=== PATIENT | male | born 1945 | race Two or more races ===

== ENCOUNTER 2017-06-23 23:09 | Inpatient (IN) | payer MEDICAID, OTHER ==
[~2017-06-23] VITALS: Ht 167.6 cm; Wt 51.3 kg
[2017-06-23] MEDS ORDERED: IV NS 0.9% 500 ML BAG IV ONE (23:30)
--- NOTE | 2017-06-24 00:09 | NUR ---
PT PRESENTS WITH HEMATEMESIS TODAY PER STATED FROM FAMILY. PT HAS HX OF DEMENTIA AND SPEAKS NO [place]. FAMILY MEMBERS AT BEDSIDE SPEAK NO [place]. PT IS UNCOOPERATIVE WITH PROCEDURE BUT WILL TOLERATE WITH FAMILIES ASSISTANCE. BLOOD DRAWN, IV PLACED LT AC 18 GUAGE.
[2017-06-24 00:18] LABS: BASOPHILS % (AUTO) 0.1 % (0.0-2.0); EOSINOPHILS # (AUTO) 0.3 /CMM (0.0-0.7); EOSINOPHILS % (AUTO) 5.4 % (0.0-6.0); HEMATOCRIT 33 % (39-51); LYMPHOCYTES # (AUTO) 0.7 /CMM (0.8-4.8); LYMPHOCYTES % (AUTO) 13.3 % (20.0-44.0); MEAN CORPUSCULAR HEMOGLOBIN 30 PG (26.0-33.0); MEAN CORPUSCULAR HGB CONC 33 g/dl (31.0-36.0); MEAN CORPUSCULAR VOLUME 92 fL (80-96); MONOCYTES # (AUTO) 0.3 /CMM (0.1-1.30); MONOCYTES % (AUTO) 5.5 % (2.0-12.0); NEUTROPHILS # (AUTO) 4.1 /CMM (1.8-8.9); NEUTROPHILS % (AUTO) 75.7 % (43.0-81.0); PLATELET COUNT (AUTO) 103 /CMM (150-450); RDW COEFFICIENT OF VARIATION 18.4 (11.5-15.0); RED BLOOD CELL COUNT(AUTO) 3.64 MIL/uL (4.5-6.0); WHITE BLOOD COUNT (AUTO) 5.5 K/uL (4.3-11.0)
--- NOTE | 2017-06-24 00:24 | NUR ---
18 G IV PLACED RT AC, PT NOW RECEIVING FLUIDS 500 ML NS
[2017-06-24 00:31] LABS: INR 1.26 (0.87-1.13); PROTHROMBIN TIME 13.1 SECS (9.5-12.7)
[2017-06-24 00:33] LABS: CALCIUM, SERUM 8.7 mg/dL (8.5-10.1); CARBON DIOXIDE 27 mmol/L (21-32); CHLORIDE 102 mmol/L (98-107); GLUCOSE 118 mg/dL (74-106); POTASSIUM 3.8 mmol/L (3.5-5.1); SODIUM SERUM 135 mmol/L (136-145); UREA NITROGEN, BLOOD 32 mg/dL (7-18)
[2017-06-24 00:42] LABS: ALANINE AMINOTRANSFERASE 40 U/L (12-78); ALBUMIN 3.3 g/dL (3.4-5.0); ALKALINE PHOSPHATASE 279 U/L (46-116); ASPARTATE AMINOTRANSFERASE 46 U/L (15-37); BILIRUBIN,DIRECT 0.8 mg/dL (0.0-0.2); BILIRUBIN,TOTAL 1.8 mg/dL (0.2-1.0); LIPASE 320 U/L (73-393); TOTAL PROTEIN, SERUM 7.3 g/dL (6.4-8.2)
[2017-06-24 00:44] LABS: TROPONIN I 0.058 ng/mL (0.00-0.056)
--- NOTE | 2017-06-24 02:14 | NUR ---
PATIENT GOES TO 314-2.
[2017-06-24] MEDS ORDERED: PANTOPRAZOLE 40 MG VIAL ONE (02:50)
--- NOTE | 2017-06-24 02:51 | NUR ---
CALLED REPORT TO RUTHIE RN TO TELE FLOOR, PT WITH FAMILY AND IS [place] SPEAKING ONLY. PT GIVEN PROTONIX BEFORE TRANSFER TO FLOOR BY RN AND EMT TECH. ADMIT TO FLOOR 314-2
[2017-06-24] MEDS ORDERED: PANTOPRAZOLE 80 MG in IV NS 0.9% 100 ML IV ONE (03:00)
--- NOTE | 2017-06-24 03:08 | NUR ---
TELE/RN RECEIVE PATIENT FROM E.[facility]. [facility]IA [facility]. PATIENT BEING ADMITTED FOR GI BLEED.PATIENT IS AWAKE, ALERT, ORIENTED, PROTONIX IV BOLUS IS INFUSING. PATIENT HAS NO C/O PAIN, NO DISTRESS NOTED. PATIENT IS NOT A GOOD HISTORIAN HENCE UNABLE TO OBTAIN ADMISSION INFORMATIONS FROM HIM. ADMISSION INFORMATIONS WERE OBTAINED FROM E.R. NOTES. MADE PATIENT COMFORTABLE. PATIENT REFUSED TO WEAR HOSPITAL GOWN. TAUGHT THE USE OF CALL LIGHT AND PLACED AT BEDSIDE WITHIN REACH. FALL PRECATION PER PROTOCOL INSTITUTED. PATIIENT IS CITIZEN OF [place] SPEAKING ONLY, MOISES, RN, TRANSLATING. WILL MONITOR.
[2017-06-24 03:15] VITALS: BP 100/58
[2017-06-24 04:00] VITALS: BP 100/58
[2017-06-24] MEDS ORDERED: FERR-58 PO (04:19)
[2017-06-24] MEDS ORDERED: BISA10SU8 RC (04:19)
[2017-06-24] MEDS ORDERED: ACET-868 PO (04:19)
[2017-06-24] MEDS ORDERED: CRAN425C PO (04:19)
[2017-06-24] MEDS ORDERED: CRAN3875 PO (04:19)
[2017-06-24] MEDS ORDERED: ATOR40TA PO (04:19)
[2017-06-24] MEDS ORDERED: DEXT38GE12 PO (04:19)
[2017-06-24] MEDS ORDERED: NA P133E RC (04:19)
[2017-06-24] MEDS ORDERED: ASPI-605 PO (04:19)
[2017-06-24] MEDS ORDERED: MAGN2400 PO (04:19)
[2017-06-24] MEDS ORDERED: MIDO2.5T PO (04:19)
[2017-06-24] MEDS ORDERED: DOCU-25 PO (04:19)
[2017-06-24] MEDS ORDERED: GLUC1KIT IM ×2 (04:19)
[2017-06-24] MEDS ORDERED: ACET-2605 PO (04:19)
[2017-06-24] MEDS ORDERED: CALC-883 PO (04:19)
--- NOTE | 2017-06-24 04:30 | NUR ---
TELE/RN PATIENT IS SLEEPING AT THIS TIME, NO DISTRESS NOTED, BREATHING EVEN AND UNLABORED. WILL CONTINUE TO MONITOR.
[2017-06-24] MEDS ORDERED: IV NS 0.9% 1,000 ML IV PRN (04:58)
[2017-06-24] MEDS ORDERED: ACETAMINOPHEN 325 MG TABLET PO PRN ×2 (05:00)
[2017-06-24] MEDS ORDERED: NA PHOS,M-B/NA PHOS,DI-BA 1 EA ENEMA RC PRN (05:00)
[2017-06-24] MEDS ORDERED: ONDANSETRON HCL/PF 4 MG/2 ML VIAL IVP PRN (05:00)
[2017-06-24] MEDS ORDERED: GLUTOSE 15 G GEL..GM. PO SCH (05:00)
[2017-06-24] MEDS ORDERED: BISACODYL SUPP (10 MG) 10 MG/SUPP.RECT SUPP.RECT RC PRN (05:00)
[2017-06-24] MEDS ORDERED: Z GUARD REMEDY 2 OZ OINT TP PRN (05:00)
[2017-06-24] MEDS ORDERED: ZOLPIDEM TARTRATE 5 MG TABLET PO PRN (05:00)
--- NOTE | 2017-06-24 06:21 | NUR ---
TELE/RN AWAKE, ALERT, ORIENTED, REFUSES IV FLUID AT THIS TIME, REFUSES MRSA SWAB AT THIS TIME. WILL ENDORSE TO NEXT RN TO F/U. ALL NEEDS ATTENDED AT THIS TIME. WILL CONTINUE TO MONITOR.
--- NOTE | 2017-06-24 06:28 | NUR ---
TELE/RN REFUSED BLOOD DRAW. EXPLAINED IMPORTANCE, BUT STILL REFUSED.
[2017-06-24 08:00] VITALS: BP 102/46
--- NOTE | 2017-06-24 08:02 | NUR ---
RN NOTES RECEIVED PATIENT ASLEEP COMFORTABLY IN BED, EASILY AROUSABLE DURING CARE. RESPIRATIONS EVEN AND UNLABORED, DENIES ANY PAIN OR DISCOMFORT AT THIS TIME,ABLE TO MAKE NEEDS KNOWN, [place] SPEAKING. IV TO LAC PATENT AND INTACT NO REDNESS OR INFILTRATION NOTED, KEPT CLEAN DRY AND COMFORTABLE, CALL LIGHT WITHIN EASY REACH.
[2017-06-24] MEDS ORDERED: FERROUS SULFATE (325 MG) 325 MG/TAB TABLET PO SCH (09:00)
[2017-06-24] MEDS ORDERED: ASPIRIN EC 81 MG TABLET.DR PO SCH (09:00)
--- NOTE | 2017-06-24 09:00 | NUR ---
RN NOTES PATIENT REFUSING MRSA SWAB TO BE DONE, PT REFUSING TO HAVE BLOOD DRAWN X3 MD AWARE, WILL REATTEMPT AND CONTINUE TO MONITOR AT THIS TIME
[2017-06-24] MEDS: PANTOPRAZOLE 40 MG VIAL IV SCH ×2 (09:11→21:50)
[2017-06-24] MEDS: MIDODRINE HCL (5MG) 5 MG TABLET PO SCH ×3 (09:11→17:46)
--- NOTE | 2017-06-24 10:56 | NUR ---
WOUND CARE CONSULT: PT PRESENTS WITH SMALL ULCER TO RT DISTAL GREAT TOE WITH PURULENT DRAINAGE. DISCOLORATION NOTED TO BILATERAL FEET. LEFT GREAT TOE NAIL MISSING. RECOMMEND PODIATRY CONSULT. PT CONTINENT AT THIS TIME AND ABLE TO ASSIST WITH TURNING/REPOSITIONING IN BED. RECOMMENDATIONS MADE FOR WOUND CARE TIL SEEN BY [facility]. DISCUSSED WITH NURSING STAFF. WILL SEE PRN. MOONEY IN AGREEMENT WITH PLAN OF CARE. Addendum: 06/24/17 at 1057 by LYNDA MORELAND WNDNU Amended: Links added.
[2017-06-24] MEDS ORDERED: POTASSIUM CHLORIDE 20 MEQ TAB.PRT.SR PO SCH (11:00)
[2017-06-24] MEDS ORDERED: FUROSEMIDE 20 MG/2 ML VIAL IV ONE (11:00)
[2017-06-24] MEDS ORDERED: DEXTROSE 50%-WATER 50 ML DISP.SYRIN IVP PRN (14:00)
[2017-06-24 16:00] VITALS: BP 100/50
--- NOTE | 2017-06-24 16:30 | NUR ---
RN NOTES FAMILY AT BEDSIDE WANT TO ATTEMPT BLOOD DRAW AGAIN AWARE CALLED LAB TO REATTEMPT
[2017-06-24] MEDS: BLOOD SUGAR DIAGNOSTIC 1 EACH STRIP IN SCH (17:51)
[2017-06-24] MEDS ORDERED: ATORVASTATIN 40 MG TABLET PO SCH (18:00)
[2017-06-24 18:10] LABS: BASOPHILS % (AUTO) 0.2 % (0.0-2.0); EOSINOPHILS # (AUTO) 0.3 /CMM (0.0-0.7); EOSINOPHILS % (AUTO) 6.5 % (0.0-6.0); HEMATOCRIT 32 % (39-51); HEMOGLOBIN 10.7 g/dL (13.5-17.5); LYMPHOCYTES # (AUTO) 0.8 /CMM (0.8-4.8); LYMPHOCYTES % (AUTO) 14.9 % (20.0-44.0); MEAN CORPUSCULAR HEMOGLOBIN 31 PG (26.0-33.0); MEAN CORPUSCULAR HGB CONC 33 g/dl (31.0-36.0); MEAN CORPUSCULAR VOLUME 92 fL (80-96); MONOCYTES # (AUTO) 0.3 /CMM (0.1-1.30); MONOCYTES % (AUTO) 5.5 % (2.0-12.0); NEUTROPHILS # (AUTO) 3.8 /CMM (1.8-8.9); NEUTROPHILS % (AUTO) 72.9 % (43.0-81.0); PLATELET COUNT (AUTO) 97 /CMM (150-450); RDW COEFFICIENT OF VARIATION 18.5 (11.5-15.0); WHITE BLOOD COUNT (AUTO) 5.2 K/uL (4.3-11.0)
[2017-06-24 18:33] LABS: CALCIUM, SERUM 8.3 mg/dL (8.5-10.1); CARBON DIOXIDE 22 mmol/L (21-32); CHLORIDE 101 mmol/L (98-107); CREATININE 1.1 mg/dL (0.6-1.3); GLUCOSE 117 mg/dL (74-106); MAGNESIUM 1.3 mg/dL (1.8-2.4); PHOSPHORUS 3.6 mg/dL (2.5-4.9); POTASSIUM 3.6 mmol/L (3.5-5.1); SODIUM SERUM 135 mmol/L (136-145); UREA NITROGEN, BLOOD 24 mg/dL (7-18)
[2017-06-24 18:36] LABS: CHOLESTEROL 90 mg/dL (<200); HDL CHOLESTEROL 51 mg/dL (40-60); LDL 33 mg/dL (0-99); TRIGLYCERIDES 32 mg/dL (30-150)
[2017-06-24 18:44] LABS: BAND % (MANUAL) 4 % (0.0-5.0); EOSINOPHILS % (MANUAL) 2 % (0-4); LYMPHOCYTES % (MANUAL) 14 % (16-48); MONOCYTES % (MANUAL) 4 % (0-11.0); NEUTROPHILS % (MANUAL) 76 (42-76)
[2017-06-24 18:56] LABS: TROPONIN I 1.291 ng/mL (0.00-0.056)
--- NOTE | 2017-06-24 19:01 | NUR ---
RN NOTES PATIENT ASLEEP COMFORTABLY IN BED, EASILY AROUSABLE DURING CARE. RESPIRATIONS EVEN AND UNLABORED, DENIES ANY PAIN OR DISCOMFORT AT THIS TIME,ABLE TO MAKE NEEDS KNOWN, [place] SPEAKING. IV TO LAC PATENT AND INTACT NO REDNESS OR INFILTRATION NOTED, KEPT CLEAN DRY AND COMFORTABLE, CALL LIGHT WITHIN EASY REACH, WILL CONTINUE TO MONITOR AND ENDORSED TO NEXT SHIFT FOR CONTINUITY OF CARE
--- NOTE | 2017-06-24 19:10 | NUR ---
RN NOTES RECEIVED NOTICE OF PT LAB RESULTS OF MAGNESIUM 1.7 AND TROPONIN 1[address] WU ON UNIT PER WITH ORDERS FOR MAGNESIUM BOLUS 2GMS IV AND NO ORDERS FOR TROPONIN LEVEL, CONTINUE TO MONITOR AT THIS TIME PATIENT MAY HAVE CCHO 60 GM DIET, WILL CONTINUE TO MONITOR AND ENDORSE TO NEXT SHIFT
--- NOTE | 2017-06-24 19:30 | NUR ---
TELE/RN NOTES RECEIVED PT. LYING IN BED AWAKE, ALERT AND ORIENTED X2. BREATHING EVEN AND UNLABORED ON ROOM AIR. NO SOB, RESPIRATORY DISTRESS OR COMPLAINTS OF PAIN NOTED AT THIS TIME. NO COMPLAINTS OF CHEST PAIN NOTED AT THIS TIME. PT. WITH EXTERNAL CLERICAL SUPERVISOR PRESENT AND INTACT. CURRENT RHYTHM = SINUS RHYTHM HR 72. PT. WITH LEFT AC 18 GAUGE IV SALINE LOCK PRESENT, PATENT AND INTACT. PER DAYSHIFT NURSE AWARE OF PT. ELEVATED TROPONIN. PER MD NO NEW ORDERS, CONTINUE TO MONITOR. WILL ADMINISTER TO PT. MAGNESIUM 2GM IV ORDERED. BED LOCKED AND IN LOWEST POSITION, SIDE RAILS UP X3, BED ALARM ON, CALL LIGHT WITHIN REACH, WILL CONTINUE TO MONITOR.
--- NOTE | 2017-06-24 20:10 | NUR ---
RN NOTES PATIENT REFUSING WOUND TREATMENT TO BLE, STATES "NO DON'T DO ANYTHING, I AM FINE I DONT NEED ANYTHING THERE" ATTEMPTED MULTIPLE TIMES
[2017-06-24 20:22] VITALS: BP 119/61
[2017-06-24] MEDS: Magnesium 1GM/D5W 100ML PREMIX 100 ML IV SCH ×2 (20:24→21:52)
[2017-06-24] MEDS: DOCUSATE SODIUM 100 MG CAPSULE PO SCH (21:51)
[2017-06-24 23:37] LABS: HEMATOCRIT 31 % (39-51); HEMOGLOBIN 10.2 g/dL (13.5-17.5); MEAN CORPUSCULAR HEMOGLOBIN 30 PG (26.0-33.0); MEAN CORPUSCULAR HGB CONC 33 g/dl (31.0-36.0); MEAN CORPUSCULAR VOLUME 92 fL (80-96); PLATELET COUNT (AUTO) 89 /CMM (150-450); RED BLOOD CELL COUNT(AUTO) 3.39 MIL/uL (4.5-6.0); WHITE BLOOD COUNT (AUTO) 4.5 K/uL (4.3-11.0)
[2017-06-25 00:16] VITALS: BP 96/57
[2017-06-25 04:12] VITALS: BP 94/55
[2017-06-25] MEDS: BLOOD SUGAR DIAGNOSTIC 1 EACH STRIP IN SCH ×4 (06:00→18:00)
--- NOTE | 2017-06-25 06:57 | NUR ---
TELE/RN NOTES PT. IS LYING IN BED RESTING. BREATHING EVEN AND UNLABORED ON ROOM AIR. NO SOB, RESPIRATORY DISTRESS OR COMPLAINTS OF PAIN NOTED AT THIS TIME. NO COMPLAINTS OF CHEST PAIN NOTED AT THIS TIME. PT. WITH EXTERNAL SOFTWOOD FALLER PRESENT AND INTACT. CURRENT RHYTHM = SINUS RHYTHM HR 66. PT. WITH LEFT AC 18 GAUGE IV SALINE LOCK PRESENT, PATENT AND INTACT. ALL PT. NEEDS MET. BED LOCKED AND IN LOWEST POSITION, SIDE RAILS UP X3, BED ALARM ON, CALL LIGHT WITHIN REACH, WILL ENDORSE TO DAYSHIFT NURSE FOR CONTINUITY OF CARE.
--- NOTE | 2017-06-25 07:20 | NUR ---
RN NOTES RECEIVED PATIENT ASLEEP COMFORTABLY IN BED, EASILY AROUSABLE DURING CARE. RESPIRATIONS EVEN AND UNLABORED, DENIES ANY PAIN OR DISCOMFORT AT THIS TIME,ABLE TO MAKE NEEDS KNOWN, CENTRAL AFR[place] SPEAKING. REFUSED AM LABS, IV TO LAC PATENT AND INTACT NO REDNESS OR INFILTRATION NOTED, KEPT CLEAN DRY AND COMFORTABLE, CALL LIGHT WITHIN EASY REACH.
[2017-06-25 08:00] VITALS: BP 101/57
[2017-06-25] MEDS ORDERED: Magnesium 1GM/D5W 100ML PREMIX 100 ML IV SCH (08:00)
--- NOTE | 2017-06-25 08:30 | NUR ---
RN NOTES PATIENTS IV LEAKING NOT WORKING, PT REFUSED REINSERTION X3, NOTIFIED MD OF PT'S REFUSAL OF AM LABS, IV REINSERTION AND CLARIFIED MAGNESIUM ORDERS, WITH MD ORDERS CARRIED OUT CONTINUE TO MONITOR AT THIS TIME
[2017-06-25] MEDS: PANTOPRAZOLE 40 MG VIAL IV SCH ×2 (08:34→21:00)
[2017-06-25] MEDS: MIDODRINE HCL (5MG) 5 MG TABLET PO SCH ×3 (08:34→17:00)
--- NOTE | 2017-06-25 10:00 | NUR ---
RN NOTES PATIENT REFUSING WOUND TREATMENT TO BLE, STATES "NO DON'T DO ANYTHING, I AM FINE I DONT NEED ANYTHING THERE" ATTEMPTED MULTIPLE TIMES
--- NOTE | 2017-06-25 11:30 | NUR ---
RN NOTES PATIENT REFUSING WOUND TREATMENT TO BLE, STATES "NO DON'T DO ANYTHING, I AM FINE I DONT NEED ANYTHING THERE" ATTEMPTED MULTIPLE TIMES
--- NOTE | 2017-06-25 14:30 | NUR ---
RN NOTES PATIENT REFUSING WOUND TREATMENT TO BLE, STATES "NO DON'T DO ANYTHING, I AM FINE I DONT NEED ANYTHING THERE" ATTEMPTED MULTIPLE TIMES, AWARE
[2017-06-25 16:00] VITALS: BP 97/71
--- NOTE | 2017-06-25 18:55 | NUR ---
RN NOTES PATIENT ASLEEP COMFORTABLY IN BED, EASILY AROUSABLE DURING CARE. RESPIRATIONS EVEN AND UNLABORED, DENIES ANY PAIN OR DISCOMFORT AT THIS TIME,ABLE TO MAKE NEEDS KNOWN, [place] SPEAKING. REFUSED AM LABS AND NO IV AT THIS TIME MD AWARE, KEPT CLEAN DRY AND COMFORTABLE, CALL LIGHT WITHIN EASY REACH, WILL CONTINUE TO MONITOR AND ENDORSE TO NEXT SHIFT FOR CONTINUITY OF CARE
--- NOTE | 2017-06-25 19:30 | NUR ---
MS/RN NOTES RECEIVED PT. LYING IN BED RESTING. PT. IS EASILY AROUSABLE TO NAME. PT. IS AWAKE, ALERT AND ORIENTED X2. BREATHING EVEN AND UNLABORED ON ROOM AIR. NO SOB, RESPIRATORY DISTRESS OR COMPLAINTS OF PAIN NOTED AT THIS TIME. NO COMPLAINTS OF CHEST PAIN NOTED AT THIS TIME. PT. WITH NO IV ACCESS MD AWARE. PER DAYSHIFT NURSE PT. IS NONCOMPLIANT AND REFUSING ACCUCHECKS AND IV INSERTION. BED LOCKED AND IN LOWEST POSITION, SIDE RAILS UP X3, BED ALARM ON, CALL LIGHT WITHIN REACH, WILL CONTINUE TO MONITOR.
[2017-06-25 20:00] VITALS: BP 110/64
--- NOTE | 2017-06-25 20:36 | NUR ---
MS/RN NOTES NOTIFIED [facility] FAMILY NURSE PRACTITIONER DR. WHEATLEY ABOUT PT. RESULTS OF EXTREMITY ARTERIAL STUDY. "ON THE RIGHT SIDE, ABNORMAL FLOW IN THE POPLITEAL ARTERY AND CALF ARTERIES. THE RIGHT DORSALIS PEDIS ARTERY IS OCCLUDED. ON THE LEFT SIDE, ABNORMAL FLOW IN THE DORSALIS PEDIS ARTERY. THE LEFT ANTERIOR TIBIAL ARTERY AND POSTERIOR TIBIAL ARTERY ARE OCCLUDED." PER DR. WHEATLEY CALL DR. FLORES STAT AND SEE WHAT HE RECOMMENDS. WILL CALL DR. FLORES ORDERED. WILL CONTINUE TO MONITOR.
--- NOTE | 2017-06-25 20:47 | NUR ---
MS/RN NOTES CALLED DR. SANDRA ABAD ORDERED BY DR. WHEATLEY. SPOKE WITH TRIBUNAL MEMBER DR. ZELAYA. NOTIFIED HIM ABOUT PT. EXTREMITY DOPPLER RESULTS. PT. BILATERAL FEET ARE NOT RED OR SWOLLEN. PT. DENIES ANY PAIN IN HIS FEET BUT STATES THEY ARE SENSITIVE. PT. HAS SENSATION IN BOTH FEET. PER DR. ZELAYA THIS IS CHRONIC. NO NEW ORDERS AT THIS TIME AND HE WILL LOOK UP THE PT. WILL CONTINUE TO MONITOR.
--- NOTE | 2017-06-25 21:10 | NUR ---
MS/RN NOTES CALLED [facility] CATERPILLAR DRIVER TO UPDATE DR. WHEATLEY. DR. WHEATLEY DID NOT WARRANT CLERK AND WAS PAGED. AWAITING CALL BACK.
--- NOTE | 2017-06-25 21:40 | NUR ---
MS/RN NOTES CALLED [facility] CONTRACT ADMIN SERVICE. STILL AWAITING CALL BACK FROM DR. WHEATLEY. PER CONTRACT ADMIN SERVICE DR. WHEATLEY WILL BE PAGED AGAIN. WILL CONTINUE TO AWAIT CALL.
[2017-06-25] MEDS: DOCUSATE SODIUM 100 MG CAPSULE PO SCH (21:50)
--- NOTE | 2017-06-25 22:15 | NUR ---
MS/RN NOTES SPOKE WITH [facility] TICKET PRINTER DR. WHEATLEY AND NOTIFIED HER THAT DR. ZELAYA WAS MADE AWARE OF THE RESULTS OF THE BILATERAL LOWER EXTREMITY DOPPLER AND PT. CONDITION. HE STATED IT IS CHRONIC NO NEW ORDERS AT THIS TIME. PER DR. WHEATLEY OK NO NEW ORDERS AT THIS TIME. WILL CONTINUE TO MONITOR.
[2017-06-26] MEDS: BLOOD SUGAR DIAGNOSTIC 1 EACH STRIP IN SCH ×3 (06:00→12:00)
--- NOTE | 2017-06-26 06:29 | NUR ---
MS/RN NOTES PT. IS LYING IN BED RESTING. BREATHING EVEN AND UNLABORED ON ROOM AIR. NO SOB, RESPIRATORY DISTRESS OR COMPLAINTS OF PAIN NOTED AT THIS TIME. NO COMPLAINTS OF CHEST PAIN NOTED AT THIS TIME. PT. CONTINUES TO REFUSE IV INSERTION, PT. REMAINS WITH NO IV ACCESS MD AWARE. BED LOCKED AND IN LOWEST POSITION, SIDE RAILS UP X3, BED ALARM ON, CALL LIGHT WITHIN REACH, WILL ENDORSE TO DAYSHIFT NURSE FOR CONTINUITY OF CARE.
[2017-06-26] MEDS: FUROSEMIDE 40 MG/4 ML VIAL IV SCH ×2 (07:30→10:39)
--- NOTE | 2017-06-26 07:39 | NUR ---
MS/RN OPENING NOTE PATIENT RECEIVED IN BED IN STABLE CONDITION. A/O X 2-3, IRANIAN SPEAKING ONLY. NO SIGNS OF ACUTE DISTRESS, NO COMPLAIN OF PAIN OR DISCOMFORT. ALL NEEDS ATTENDED TO. CALL LIGHT WITHIN REACH. WILL CONTINUE TO MONITOR TO ENSURE SAFETY.
[2017-06-26 08:00] VITALS: BP 97/57
[2017-06-26] MEDS: POTASSIUM CHLORIDE 20 MEQ TAB.PRT.SR PO SCH ×3 (08:49→10:40)
[2017-06-26] MEDS: MIDODRINE HCL (5MG) 5 MG TABLET PO SCH ×2 (08:49→13:06)
--- NOTE | 2017-06-26 08:54 | NUR ---
MS/RN LASIX NON ADMIN PER DR. MATIAS'S ORDER GIVE PATIENT LASIX 40MG/4ML VIA IV PUSH. PATIENT REFUSE TO HAVE IV ACCESS, OFFERED TIMES 3 WITH RISK AND BENEFITS EXPLAINED. STILL CONTINUE TO REFUSE. DR MATIAS MADE AWARE.
[2017-06-26] MEDS ORDERED: PANTOPRAZOLE 40 MG TABLET.DR PO SCH (09:00)
[2017-06-26 16:00] VITALS: BP 108/62
--- NOTE | 2017-06-26 17:23 | NUR ---
MS/LINOTYPE MACHINIST APPRENTICE PATIENT DISCHARGE TO [facility] IN STABLE CONDITION. A/O X 2. ARM[place] SPEAKING. NO SIGNS OF ACUTE DISTRESS. NO COMPLAIN OF PAIN OR DISCOMFORT. DISCHARGE INSTRUCTIONS PROVIDED, REINFORCEMENT NEEDED. REPORT GIVEN TO OCTAVIANO RESENDIZ FROM NURSING FACILITY. NAME BAND AND IV LINE REMOVED. ALL NEEDS ATTENDED TO. LEFT VIA AMBULANCE ACCOMPANIED BY 2 PARAMEDICS.
== END 2017-06-26 17:30 | DRG 190 ==
LOC: ER 23:12 → TELE 06-24 02:16 → MED 06-25 11:36
PROVIDERS: ADMIT Nurse Practitioner Acute Care; ATTEND Nurse Practitioner Acute Care
DX: I21.4 Non-ST elevation (NSTEMI) myocardial infarction (principal); N17.0 Acute kidney failure with tubular necrosis; E43 Unspecified severe protein-calorie malnutrition; G93.41 Metabolic encephalopathy; K92.0 Hematemesis; F03.90 Unspecified dementia, unspecified severity, without behavioral disturbance, psychotic disturbance, mood disturbance, and anxiety; E11.51 Type 2 diabetes mellitus with diabetic peripheral angiopathy without gangrene; E87.1 Hypo-osmolality and hyponatremia; I50.9 Heart failure, unspecified; I21.A1 Myocardial infarction type 2; G40.909 Epilepsy, unspecified, not intractable, without status epilepticus; I25.10 Atherosclerotic heart disease of native coronary artery without angina pectoris; D63.8 Anemia in other chronic diseases classified elsewhere; E78.5 Hyperlipidemia, unspecified; G90.1 Familial dysautonomia [Riley-Day]; Z79.82 Long term (current) use of aspirin; Z79.899 Other long term (current) drug therapy; E83.42 Hypomagnesemia; L02.611 Cutaneous abscess of right foot
CPT/HCPCS: 36415; 71010-TC; 73630-TC; 80048-TC; 80061-TC; 80076-TC; 82272-TC; 82962-TC; 83690-TC; 83735-TC; 84100-TC; 84484-TC; 85025-TC; 85027-TC; 85730-TC; 86850-TC; 87081-TC; 93307-TC; C9113; J1940; J3475; J7030; Z7610